=== PATIENT | male | born 1945 | race Caucasian/White ===

== ENCOUNTER 2017-05-25 03:36 | Inpatient (IN) ==
[2017-05-20 13:33] LABS: MANUAL DIFF NEEDED? NO
[2017-05-20 13:45] LABS: BASO% 0.7 % (0.0-0.8); EOS# 0.15 X1000 (0.0-0.7); EOS% 2.2 % (0.0-10.0); HEMATOCRIT 45.2 % (42.0-52.0); HEMOGLOBIN 15.7 g/dL (14.0-18.0); LYMPH# 3.85 X1000 (1.2-3.4); LYMPH% 56.1 % (20.5-51.1); MCH 30.7 PG (27-31); MCHC 34.7 g/dL (33-37); MCV 88.3 FL (81-99); MONO# 0.29 X1000 (0.11-0.59); MONO% 4.2 % (1.7-9.3); MPV 10.3 FL (7.4-10.4); NEUT% 36.8 % (42.2-75.2); PLT 204 X1000 (130-400); RBC 5.12 XMIL (4.7-6.1)
[2017-05-20 14:03] LABS: AGAP 10; BUN 9 mg/dL (8-22); CALCIUM 9.5 mg/dL (8.8-10.2); CHLORIDE 104 mmol/L (98-107); COSMO 278; POTASSIUM 3.8 mmol/L (3.5-5.1); SODIUM 140 mmol/L (136-145); TCO2 26 mmol/L (25-35)
--- NOTE | 2017-05-20 15:08 | EKG Report ---
Test Performed on : 05/20/2017 1:05:16 PM Test Reason : PAT Blood Pressure : / mmHG Vent. Rate : 065 BPM Atrial Rate : 065 BPM P-R Int : 224 ms QRS Dur : 094 ms QT Int : 388 ms P-R-T Axes : 046 057 065 degrees QTc Int : 403 ms Sinus rhythm. with 1st degree AV block. Otherwise normal ECG When compared with ECG of 26-APR-2012 10:48, No significant change was found Confirmed by Haim Leslie MD ([id number]) on 05/20/2017 3:25:42 PM
[2017-05-25] MEDS ORDERED: ENTEREG ONE (05:34)
[2017-05-25] MEDS ORDERED: REGLAN ONE (05:34)
[2017-05-25] MEDS ORDERED: LR 1,000 ML ONE (05:34)
[2017-05-25] MEDS ORDERED: INVANZ 1 GM/NS 1 GM/50 ML IVPB ONE (05:34)
[2017-05-25] MEDS ORDERED: PEPCID ONE (05:34)
[2017-05-25] MEDS ORDERED: FENTANYL ONE (06:00)
[2017-05-25] MEDS ORDERED: DIPRIVAN 1% ONE (06:01)
[2017-05-25] MEDS ORDERED: NEOSTIGMINE ONE (06:02)
[2017-05-25] MEDS ORDERED: XYLOCAINE-MPF 2% ONE (06:03)
[2017-05-25] MEDS ORDERED: QUELICIN (DOSE) ONE (06:03)
[2017-05-25] MEDS ORDERED: ROBINUL ONE ×2 (06:03→07:44)
[2017-05-25] MEDS ORDERED: STERILE WATER INJ. ONE (06:03)
[2017-05-25] MEDS ORDERED: NORCURON ONE (06:03)
[2017-05-25] MEDS ORDERED: OFIRMEV 1000 MG/ISOTONIC SOLN 1,000 MG/100 ML BOTTLE ONE (06:03)
[2017-05-25] MEDS ORDERED: ZOFRAN ONE (06:03)
[2017-05-25] MEDS ORDERED: NEO-SYNEPHRINE ONE (06:03)
[2017-05-25 07:35] LABS: URINE SOURCE CATH
[2017-05-25 07:41] LABS: BILIRUBIN URINE NEGATIVE (NEGATIVE); BLOOD URINE NEGATIVE (NEGATIVE); COLOR YELLOW; GLUCOSE URINE NEGATIVE (NEGATIVE); LEUKOCYTES URINE NEGATIVE (NEGATIVE); NITRITE URINE NEGATIVE (NEGATIVE); PH URINE 5.5; PROTEIN URINE TRACE mg/dL (NEGATIVE); SP GRAVITY URINE 1.012; TURBIDITY URINE HAZY (CLEAR); UROBILINOGEN URINE NORMAL (NORMAL)
[2017-05-25 07:42] LABS: URINE MICRO REVIEW NEEDED? YES
[2017-05-25] MEDS ORDERED: PITRESSIN ONE (07:44)
[2017-05-25 07:48] LABS: UR EPITHELIAL CELLS <10 /HPF (<10); URINE BACTERIA NEGATIVE /HPF; URINE CASTS NONE SEEN; URINE RBC <10 /HPF (<10); URINE WBC <10 /HPF (<10)
[2017-05-25] MEDS: MORPHINE ONE ×2 (08:50→08:55)
[2017-05-25] MEDS ORDERED: MORPHINE ONE (09:24)
[2017-05-25] MEDS ORDERED: D5 LR 1,000 ML ONE (09:42)
--- NOTE | 2017-05-25 09:58 | OPERATIVE NOTE ---
PROCEDURE DATE: 05/25/2017 PROCEDURE PERFORMED: Open sigmoid colon resection with mobilization of the splenic flexure. SURGEON: Harry Salmon MD. PROTECTIVE SERVICES SOCIAL WORKER: AIMEE Conte. PREOPERATIVE DIAGNOSIS: Recurrent diverticulitis. POSTOPERATIVE DIAGNOSIS: Recurrent diverticulitis. DESCRIPTION OF PROCEDURE: Satisfactory general endotracheal anesthesia was achieved. The Hector stirrups were used. The abdomen was prepped and draped in a sterile fashion. We made a midline incision from the mid epigastrium to the pubis. We carried our incision through the subcutaneous tissue and through the midline fascia. After entering the abdominal cavity, we noted the extent of these diverticula. We placed the patient in reverse Trendelenburg and then incised the white line of Toldt. We divided the splenocolic ligament all the way to the midline, thereby mobilizing the splenic flexure. Satisfactory hemostasis was achieved. We then placed the patient in Trendelenburg and turned our attention the pelvis. We packed the small bowel cephalad using the Bookwalter retractor. Again, we extended our incision along the white line of Toldt down to the pelvis. We chose a spot in the distal sigmoid to be the appropriate distal resection point. We incised the peritoneum on the medial side of the sigmoid colon as well. We then chose a spot in the distal descending colon that we divided with a SORAYA 60 blue cartridge. We then divided the mesentery using the LigaSure. When we got the major sigmoid vessels, we clamped and divided them, and suture ligated them with 2-0 silk suture ligatures. We continued our dissection with the LigaSure just to the distal point of resection. We then laid the sigmoid colon out of the abdominal cavity up onto the abdominal wall so that we could see the back of the distal sigmoid. We then approximated the proximal stapled end to the back of the distal sigmoid. We then placed 3- 0 silks in a Lembert fashion. We then amputated the sigmoid that we were going to resect. We also removed the proximal staple line so we had 2 open ends of the bowel approximated side-by- side. We then used a 3-0 Polysorb running locking stitch posteriorly, changed it to a Bloomingdale stitch anteriorly, and our final layer anteriorly was interrupted 3-0 silks in a Lembert fashion. This thereby completed a 2 layered, end-to-end sewn closure. We changed gloves at this point and rid ourselves of contaminated instruments. We irrigated out the pelvis, placed some 3-0 silks in the mesentery. We then returned the patient to his normal position. We looked in the upper quadrant and hemostasis was satisfactory. We returned the small bowel to its normal place, removed our retractors and laps, and then closed the peritoneum with a 2-0 chromic. We closed the fascia with a running #2 Prolene. We then closed the skin with grazyna and a sterile bandage was applied. He tolerated the procedure satisfactorily and was sent to the recovery room in satisfactory condition. cc: MD Catracho Kingsley MD Dr. Reddy
[2017-05-25] MEDS: DILAUDID IV PRN ×3 (11:00→19:40)
[2017-05-25] MEDS: VITAMIN D PO SCH (11:02)
[2017-05-25] MEDS: ZOLOFT PO SCH (11:02)
[2017-05-25] MEDS: NORVASC PO SCH (11:02)
[2017-05-25] MEDS: HYDROCHLOROTHIAZIDE PO SCH (11:03)
[2017-05-25] MEDS: PERIDEX MT SCH ×2 (11:03→20:41)
[2017-05-25] MEDS: LOTENSIN PO SCH (11:03)
[2017-05-25] MEDS: D5 LR 1,000 ML IV SCH ×2 (11:09→19:39)
[2017-05-25] MEDS: ASPIRIN PO SCH (11:09)
[2017-05-25] MEDS: OFIRMEV 1000 MG/ISOTONIC SOLN 1,000 MG/100 ML BOTTLE IV SCH ×2 (14:00→19:07)
[2017-05-25] MEDS: FLONASE NAS SCH (14:00)
[2017-05-25] MEDS: ZOFRAN IV PRN (19:39)
[2017-05-25] MEDS: AMBIEN PO SCH (20:41)
[2017-05-25] MEDS: LOVENOX SUBQ SCH (20:41)
[2017-05-25] MEDS: ZOCOR PO SCH (20:41)
[2017-05-26] MEDS: DILAUDID IV PRN ×4 (01:06→18:04)
[2017-05-26] MEDS: OFIRMEV 1000 MG/ISOTONIC SOLN 1,000 MG/100 ML BOTTLE IV SCH ×4 (01:06→17:59)
[2017-05-26] MEDS: D5 LR 1,000 ML IV SCH (05:23)
[2017-05-26 06:34] LABS: HEMATOCRIT 39.7 % (42.0-52.0); HEMOGLOBIN 13.6 g/dL (14.0-18.0); MCH 30.6 PG (27-31); MCHC 34.3 g/dL (33-37); MCV 89.4 FL (81-99); MPV 10.6 FL (7.4-10.4); RBC 4.44 XMIL (4.7-6.1)
[2017-05-26 06:44] LABS: AGAP 10; BUN 8 mg/dL (8-22); CALCIUM 8.5 mg/dL (8.8-10.2); CHLORIDE 94 mmol/L (98-107); COSMO 266; POTASSIUM 3.3 mmol/L (3.5-5.1); SODIUM 133 mmol/L (136-145); TCO2 29 mmol/L (25-35)
[2017-05-26] MEDS: VITAMIN D PO SCH (09:50)
[2017-05-26] MEDS: ASPIRIN PO SCH (09:50)
[2017-05-26] MEDS: LOTENSIN PO SCH ×3 (09:50→16:19)
[2017-05-26] MEDS: HYDROCHLOROTHIAZIDE PO SCH ×3 (09:50→16:19)
[2017-05-26] MEDS: NORVASC PO SCH ×3 (09:50→16:20)
[2017-05-26] MEDS: FLONASE NAS SCH (09:51)
[2017-05-26] MEDS: ENTEREG PO SCH ×2 (09:51→21:39)
[2017-05-26] MEDS: ZOLOFT PO SCH (09:52)
[2017-05-26] MEDS: PERIDEX MT SCH ×2 (09:52→21:39)
[2017-05-26] MEDS: D5 LR + KCL 20 MEQ 1,000 ML IV SCH (16:17)
[2017-05-26] MEDS: ZOFRAN IV PRN (18:05)
[2017-05-26] MEDS: AMBIEN PO SCH (21:39)
[2017-05-26] MEDS: ZOCOR PO SCH (21:39)
[2017-05-26] MEDS: LOVENOX SUBQ SCH (21:39)
[2017-05-27] MEDS: D5 LR + KCL 20 MEQ 1,000 ML IV SCH ×3 (04:22→17:54)
[2017-05-27] MEDS: OFIRMEV 1000 MG/ISOTONIC SOLN 1,000 MG/100 ML BOTTLE IV SCH ×6 (04:34→18:24)
[2017-05-27 06:40] LABS: AGAP 14; BUN 5 mg/dL (8-22); CALCIUM 10.2 mg/dL (8.8-10.2); CHLORIDE 93 mmol/L (98-107); COSMO 272; POTASSIUM 3.2 mmol/L (3.5-5.1); SODIUM 137 mmol/L (136-145); TCO2 30 mmol/L (25-35)
[2017-05-27] MEDS: VITAMIN D PO SCH (08:27)
[2017-05-27] MEDS: NORVASC PO SCH (08:27)
[2017-05-27] MEDS: ASPIRIN PO SCH (08:27)
[2017-05-27] MEDS: HYDROCHLOROTHIAZIDE PO SCH (08:27)
[2017-05-27] MEDS: ENTEREG PO SCH ×2 (08:28→21:45)
[2017-05-27] MEDS: ZOLOFT PO SCH (08:28)
[2017-05-27] MEDS: PERIDEX MT SCH ×2 (08:28→21:45)
[2017-05-27] MEDS: LOTENSIN PO SCH (08:28)
[2017-05-27] MEDS: FLONASE NAS SCH (08:28)
[2017-05-27] MEDS ORDERED: ULTRAM PO PRN (09:30)
[2017-05-27] MEDS: ZOCOR PO SCH (21:45)
[2017-05-27] MEDS: LOVENOX SUBQ SCH (21:45)
[2017-05-27] MEDS: AMBIEN PO SCH (21:45)
[2017-05-28] MEDS: OFIRMEV 1000 MG/ISOTONIC SOLN 1,000 MG/100 ML BOTTLE IV SCH ×5 (01:35→18:15)
[2017-05-28] MEDS: D5 LR + KCL 20 MEQ 1,000 ML IV SCH ×2 (06:42→11:28)
[2017-05-28] MEDS: NORVASC PO SCH (08:57)
[2017-05-28] MEDS: LOTENSIN PO SCH (08:57)
[2017-05-28] MEDS: FLONASE NAS SCH (08:57)
[2017-05-28] MEDS: ENTEREG PO SCH ×2 (08:57→21:48)
[2017-05-28] MEDS: ASPIRIN PO SCH (08:57)
[2017-05-28] MEDS: HYDROCHLOROTHIAZIDE PO SCH (08:57)
[2017-05-28] MEDS: VITAMIN D PO SCH (08:57)
[2017-05-28] MEDS: ZOLOFT PO SCH (08:57)
[2017-05-28] MEDS: PERIDEX MT SCH ×2 (08:59→21:53)
[2017-05-28] MEDS ORDERED: D5 LR + KCL 20 MEQ 1,000 ML IV SCH (12:28)
[2017-05-28] MEDS: AMBIEN PO SCH (21:48)
[2017-05-28] MEDS: ZOCOR PO SCH (21:48)
[2017-05-28] MEDS: LOVENOX SUBQ SCH (21:49)
[2017-05-29] MEDS: OFIRMEV 1000 MG/ISOTONIC SOLN 1,000 MG/100 ML BOTTLE IV SCH ×2 (01:57→08:17)
[2017-05-29] MEDS: ASPIRIN PO SCH (08:12)
[2017-05-29] MEDS: HYDROCHLOROTHIAZIDE PO SCH (08:12)
[2017-05-29] MEDS: ENTEREG PO SCH (08:13)
[2017-05-29] MEDS: LOTENSIN PO SCH (08:13)
[2017-05-29] MEDS: PERIDEX MT SCH (08:14)
[2017-05-29] MEDS: ZOLOFT PO SCH (08:14)
[2017-05-29] MEDS: FLONASE NAS SCH (08:16)
[2017-05-29] MEDS: VITAMIN D PO SCH (08:16)
[2017-05-29] MEDS: NORVASC PO SCH (08:16)
--- NOTE | 2017-06-06 06:54 | DISCHARGE SUMMARY ---
ADMISSION DATE: 05/25/2017 DISCHARGE DATE: 05/29/2017 PRIMARY DISCHARGE DIAGNOSIS: Recurrent chronic sigmoid diverticulitis. HOSPITAL COURSE: A 72-year-old gentleman sent with recurrent chronic sigmoid diverticulitis. The imaging proved this to be in the sigmoid and distal descending colon. He therefore was prepped as an outpatient and admitted on 05/25. He underwent the operation on 05/25. Postoperatively, he did generally well. His Locke was removed on the second postoperative day. He was started on clear liquids. We advanced his diet subsequently. By 05/29, he was tolerating solid food. His bowels had moved. He was passing flatus. His wound was fine. It is felt he could be discharged home. He will return to the office in followup for staple removal. Wound care and activity was discussed. cc: MD Dr. Ulices Kingsley MD
== END 2017-05-29 13:22 | disposition home or self-care (01) ==
LOC: SURHOLD 03:36 → 4N 09:14
PROVIDERS: ADMIT Surgery; ATTEND Surgery